=== PATIENT | female | born 1980 | race Caucasian/White ===

== ENCOUNTER 2019-05-01 19:01 | Emergency (ER) | payer OTHER, SELFPAY ==
[2019-05-01 19:03] VITALS: BP 141/96; PULSE 93; RESP 14; TEMP 36.8; O2SAT 99; BMI 29.1
--- NOTE | 2019-05-01 19:14 | ED.VIS.LOWEX ---
History of Present Illness Informant: Patient Occurred: Today Mechanism/Context: Injury Onset: Today Context: Sudden Onset Timing: Continuous Quality of Pain: Sharp Location: Right foot and ankle Current Severity: Severe Maximum Severity: Severe Worsened by: Movement and palpation Relieved by: Rest Associated Symptoms: Negative for: Parasthesia, Weakness, Loss of Funtion Narrative: 38-year-old female presents with right foot and ankle injury. She was at her health club jumping rope inverted her ankle but mostly has foot pain. She is unable to bear weight. No numbness or tingling. No weakness. She denies any other injuries. Tetanus Immunization: Unknown Prior similar symptoms: No Recent Illness/Hospitalization: No <Phil Villalobos - Last Filed: 05/01/19 20:02> <Cali Huynh - Last Filed: 05/01/19 20:21> Chief Complaint: Lower Extremity Injury Past Medical History Prior records reviewed: Yes Past Medical History: None Surgical History: no surgical history Lives: With Family Smoking Status: Never smoker <Phil Villalobos - Last Filed: 05/01/19 20:02> <Cali Huynh - Last Filed: 05/01/19 20:21> - Allergies and Home Meds Allergies/Adverse Reactions: Allergies Sulfa (Sulfonamide Antibiotics) Allergy (Verified 05/01/19 19:03) Rash Primary Care Physician: Liza Leslie MD [Primary Care Provider] - Shady Shah DPM [STAFF PHYSICIAN] - Review of Systems All systems negative except as indicated General: Denies: Chills, Fever Eyes: Denies: Visual changes - bilaterally, Diplopia ENT: Denies: Bilateral ear pain, Sore throat Cardiovascular: Denies: Chest pain, Palpitations Respiratory: Denies: Dyspnea, Cough Gastrointestinal: Denies: Abdominal pain, Nausea, Vomiting Genitourinary: Denies: Dysuria, Hematuria Musculoskeletal: Reports: Swelling, Extremity Pain. Denies: Myalgias, Arthralgias Skin: Denies: Rash, Abscess Neurological: Denies: Headache, Weakness, Parasthesia <Phil Villalobos - Last Filed: 05/01/19 20:02> Physical Exam Vital Signs/Narrative: Vital Signs Temp Pulse Resp BP Pulse Ox 05/01/19 19:03 98.2 F 93 14 141/96 H 99 Inital Vital Signs reviewed: Yes - Extremity Exam Right Foot: - - Patient has moderate swelling to her dorsum of her midfoot in her right lateral foot. Bony tenderness in this area. There is no bony tenderness at the base of the fifth metatarsal. There is no bony tenderness of the medial or lateral malleolus. Capillary refill and sensation of all 5 fingers is normal. Normal DP PT pulse. No proximal fibular tenderness. General: Well nourished, Well developed Head: Normocephalic, Atraumatic Eyes: Perrl, EOMI ENT: No Trauma, Moist Mucous Membranes Neck: Nontender, Full ROM Cardiovascular: Regular rate, Regular rhythm, No murmurs Respiratory: No distress, CTA bilaterally, Chest nontender Abdomen: Soft, Nontender, Nondistended, Normal bowel sounds, No masses Back: Nontender Skin: Normal color, No rash Neurological: Alert, Oriented x3 Psychological: Normal affect <Phil Villalobos - Last Filed: 05/01/19 20:02> Vital Signs/Narrative: Vital Signs Temp Pulse Resp BP Pulse Ox 05/01/19 19:03 98.2 F 93 14 141/96 H 99 <Cali Huynh - Last Filed: 05/01/19 20:21> Diagnostic/Tx/Re-eval - Medical Decision Making Patient was given an ice pack. She had taken Motrin just prior to arrival and initially declined analgesia. X-rays of the foot show a fourth and fifth metatarsal fracture. Dr Anderson is contacted and recommended posterior splint nonweightbearing and follow-up in his office as an outpatient later this week. Ortho-Glass posterior splint was applied. On repeat evaluation splint is in place no sign of compartment syndrome. Patient was given crutches made nonweightbearing. She was given 1 oxycodone prior to discharge and a prescription for Percocet. She will rest ice and elevate. She was agreeable with plan of care. Impressions Foot X-Ray 05/01/19 19:15 IMPRESSION: Fractures of the fourth and fifth metatarsals. Electronically Signed: Doyle Mena MD at 19:34 EST , Service support , 05/01/19 19:15 Foot min 3 Views [RAD] Stat <Pelini,Phil - Last Filed: 05/01/19 20:02> - Medical Decision Making Seen and evaluated independently and in conjunction with physician executive administrative assistant. Agree with notes above unless documented otherwise. Blood fractures are noted, clinically are closed. Her fifth metatarsal fracture appears to be a Mistry fracture but the distal segment is comminuted and nondisplaced. The fourth is oblique and mildly displaced. She was given analgesics, splinted, which I assisted with, she was neurovascularly intact distally after splinting. Discussed nonweightbearing status with crutches and close outpatient follow-up with Dr. shah, with whom we spoke. <Cali Huynh - Last Filed: 05/01/19 20:21> Procedures - Lower Extremity Splints Lower Extremity Splint: Franki Shore Splint Fabrication: Fabricated Location: Right <Phil Villalobos - Last Filed: 05/01/19 20:02> ED Disposition <GriseldaPhil - Last Filed: 05/01/19 20:02> <Cali Huynh - Last Filed: 05/01/19 20:21> - Plan for ED Patient: Disposition: Home or Assisted Living Diagnosis: Fracture of fourth metatarsal bone of right foot, Fracture of fifth metatarsal bone of right foot Instructions: FRACTURE, Foot Prescriptions: Oxycodone HCl/Acetaminophen [Percocet 5/325] 1 tab PO Q6H PRN PRN 3 Days #12 tab PRN Reason: Pain Prescription Printed Referrals: Liza Leslie MD [Primary Care Provider] - Shady Shah DPM [STAFF PHYSICIAN] -
--- NOTE | 2019-05-01 19:15 | RAD_ITS ---
STUDY: X-RAY - RIGHT FOOT CLINICAL: Female, 38 years old. Trauma. TECHNIQUE: 3 view(s) of the foot. COMPARISON: None. FINDINGS: Oblique distracted fracture through the mid fourth metatarsal shaft. No angulation. Comminuted fracture through the proximal and mid fifth metatarsal including the base and shaft. No significant displacement of fragments. No angulation. Normal talus, calcaneus, and tarsal bones. Normal visualized subtalar, talonavicular, calcaneocuboid, tarsal and tarsometatarsal articulations. Normal metatarsophalangeal joint of the great toe. Normal tibial and fibular sesamoid bones. Normal interphalangeal joint of the great toe. Normal phalanges of the great toe. Normal second through fifth metatarsophalangeal joints. Normal interphalangeal joints and phalanges of the lesser toes. The soft tissue structures are unremarkable. RAD/Foot min 3 Views IMPRESSION: Fractures of the fourth and fifth metatarsals. Electronically Signed: Doyle Mena MD at 19:34 EST , Service support ,
[2019-05-01] MEDS: oxyCODONE 5 MG Tablet PO (19:50)
== END 2019-05-01 20:25 | disposition home or self-care (01) ==
PROVIDERS: Emergency Provider Physician Assistant Medical; Family Provider Internal Medicine; PCP Internal Medicine
DX: S92.341A Displaced fracture of fourth metatarsal bone, right foot, initial encounter for closed fracture (principal); S92.354A Nondisplaced fracture of fifth metatarsal bone, right foot, initial encounter for closed fracture; X58.XXXA Exposure to other specified factors, initial encounter; Y93.56 Activity, jumping rope; Y92.29 Other specified public building as the place of occurrence of the external cause; Y99.9 Unspecified external cause status; Z88.2 Allergy status to sulfonamides
CPT/HCPCS: 29515; 73630; 99283

== ENCOUNTER 2019-09-03 14:00 | Outpatient (RCR) | payer OTHER, SELFPAY ==
--- NOTE | 2019-07-05 14:03 | HP.PTEVAL_ITS ---
Patient's Visit Information ARNIE MARTIN is a 38 year old F referred to Physical Therapy by Mónica Smith MD with a diagnosis of displaced fracture of 4th metatarsal, and nondisplaced fx of 5th metatarsal. Date of Evaluation: 07/03/19 Physical Therapist: Yehuda Zamudio DPT - Visit Plan Frequency: 2x /Week Duration: 4 Weeks Plan: Start with calf stretching, active ankle ROM, gentle strengthening of R ankle. May use IFC for pain control. Pt. advised to start with [place] calf stretching, intrinsic strengtheing (active control), and desensitization for plantar surfaces of her foot, as it is tender to light touch. Pt. consents. - Subjective Findings: Pt. is here today for her initial evaluation with diagnosis of displaced fracture of 4th metatarsal, and nondisplaced fx of 5th metatarsal of R foot. Pt. is a 38 y.o. female who injured her foot in [facility] while jumping roping at [employer]. Pt. reported a large amout of edema initially mostly throughout mid foot and lateral ankle. Pt. reports landing in inversion postioning , in a crack on the floor. Pt. has been in a boot for a while now, still in boot currently. Pt. also has a bone stimulator which she has been using. At her last appointment with physician, pt. reports that she is healing, but not fully healed. She is WBing at tolerated in boot and has been doing light exercises as tolerated. Pt. 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 Pt. reports increased pain with walking. She has been icing and doing general ROM exercises. Pt. is hopeful to reduce symptoms in order to get back to all recreational and work activities without limitations. - Pain R mid foot Pain Intensity (Out of 10): 3 Pain Intensity Range: 1, 5 - Objective POSTURE: Pt. has decrased WBing through her mid foot and forefoot. Pt. only applies wt. through her heel with standing and walking. Pt. does walk ~5-10 in bathroom and room. WBing through heel only. PALPATION: Pt. has tenderness throughout 4th and 5th, mostly through plantar region. Pt. has mild bruising at plantar surfaces of foot, mid foot ~3rd/4th metatarsal region. NEURO: normal throughout BLEs, both sensation and DTR bilaterally normal. ROM: R ankle- DF 6deg, PF 49deg, INV 6deg, EVR 6deg. L ankle- DF 18deg, PF 54deg, INV 20deg, EVR 20deg. Pt. has full ROM of bilaterally knees and hips. MMT: Pt. has general 4/5 strength throughout R ankle, but has 4-/5 with EVR seoncdary to increased pain. Pt. has 5/5 strength throughout rest of LE. GAIT: Pt. ambulates without pain with CAM boot. Without boot: pt. ambulates with all of her wt. on her heels, minimal wt. through her mid and forefoot. Pt. reports increased pain with any mid foot pressure. - Goals Goal 1:: LTG: Pt. to be I with HEP. Goal Time Frame: 4-6 Weeks Goal 2:: STG: PT. to have full R ankle ROM without increase in symptoms. Goal Time Frame: 2-4 Weeks Goal 3:: LTG: Pt. to ambulate with normal pattern without increase in symptoms for unlimited distances. Goal Time Frame: 4-6 Weeks Goal 4:: STG: Pt. to have increased strength throughout R ankle by 1/2 grade. Goal Time Frame: 2-4 Weeks Goal 5:: LTG: Pt. to have increased R ankle strength throughout by 1 grade. Goal Time Frame: 4-6 Weeks Goal 6:: LTG: Pt. to resume all work and gym activities without limiations. Goal Time Frame: 6-8 Weeks - Rehabilitation Potential Physical Therapy Diagnosis: Pt. has signs and symptoms consistent with displaced fracture of 4th metatarsal, and nondisplaced fx of 5th metatarsal of R foot. Pt. has difficulty with ambulation, increased pain with palaption, decreased strength, hypomobility. Pt. would benefit from PT to address above limitations progresing back to work and recreational activites with out limitations. Rehabilitation Potential: Excellent - Anticipated Interventions Thank you for the opportunity to evaluate your patient. For Medicare and Medicare HMO plans, please review the plan of care and approve it. It will need to be FAXED BACK to us at [phone] for Medicare purposes. For Medicare only, by signing this I certify the plan of care. Please let me know if there are questions or concerns regarding this plan of care. Physician Signature: Date:
--- NOTE | 2020-01-07 13:35 | HP.PT.NRP ---
ARNIE MARTIN was seen in my office for initial evaluation on 07/03/19. The following Plan of Care was established for this patient: Initial Frequency: 2x /Week Initial Duration: 4 Weeks This patient was last seen in our office 09/03/19. Pertinent comments regarding their Physical therapy will appear below: Pt. was see for her 4th/5th metatarsal stress fractures. pt. was seen in PT and was progressing wtih strengthening and tolerance to exercises. Pt. is abck to gym exercises at our last meeting as well as returned to work. Pt. has not been seen in several months and will be DC from PT at this point in time. At this point I will be discontinuing this patient from physical therapy. I would be happy to see this patient again in the future if found appropriate by the physician. Thank you! RAMSEY CrystalT
== END 2019-09-03 19:00 | disposition home or self-care (01) ==
LOC: PT 14:00
PROVIDERS: Family Provider Internal Medicine; PCP Internal Medicine; Referring Provider Orthopaedic Surgery; Visit Provider Orthopaedic Surgery
DX: S92.341D Displaced fracture of fourth metatarsal bone, right foot, subsequent encounter for fracture with routine healing (principal); S92.354D Nondisplaced fracture of fifth metatarsal bone, right foot, subsequent encounter for fracture with routine healing
CPT/HCPCS: 97110; 97161

== ENCOUNTER 2021-09-05 14:29 | Emergency (ER) | payer OTHER, SELFPAY ==
[2021-09-05 14:30] VITALS: BP 132/90; PULSE 77; RESP 18; TEMP 35.6; O2SAT 98; BMI 32.4
--- NOTE | 2021-09-05 14:56 | CT_ITS ---
STUDY: CT ABDOMEN AND PELVIS WITH CONTRAST REASON FOR EXAM: Female, 40 years old. abdominal pain -- IV PO Contrast- RLQ PAIN RADIATION DOSAGE (If Supplied By Facility): CTDIvol = ( 16.54 ) mGy, DLP = ( 1035.24 ) mGycm TECHNIQUE: Transaxial images were obtained from the dome of the diaphragm to the symphysis pubis without oral contrast. Oral and amp; IV Gastrografin and amp; 100mL Isovue-370 was administered. Sagittal and coronal images were reconstructed. Individualized dose optimization techniques were used for this CT. COMPARISON: None. FINDINGS: Lung bases clear. Bilateral breast implants partially included. Unremarkable liver, spleen, pancreas, and adrenals. No definite cholelithiasis. Punctate nonobstructing stones in the bilateral kidneys. Normal appendix. Bowel loops nonobstructed. No adenopathy. No free air or free fluid. Small fat-containing omental hernia. Intact abdominal aorta and its major branches. There is a 4 cm cystic area in the right adnexa, amenable to further evaluation by ultrasound. No acute osseous abnormality. Right pars defect of L5. No spondylolisthesis. Small posterior disc bulges in the lumbar spine at multiple levels. CT/Abdomen/Pelvis WITH Contrast IMPRESSION: Normal appendix. 4 cm cystic area in the right adnexa, amenable to further evaluation by ultrasound. Punctate nonobstructing stones in the bilateral kidneys. Electronically Signed: Cristhian Olmos MD at 17:03 EDT ,
--- NOTE | 2021-09-05 14:57 | EDS_ITS ---
HPI HPI - GI History of Present Illness Chief Complaint: Abd Pain Detail of Chief Complaint: Abdominal pain that started around 3 AM Informant: patient Narrative Narrative: Patient presents to the emergency department with abdominal pain us around 3 AM. She woke up to let the dog out and noticed discomfort. She took some Tylenol went to bed. Patient work-up with continued pain to the right lower quadrant. The pain is continuous but waxes and wanes in intensity. She denies any pain in her back. She has had some mild nausea but no fever. She had decreased appetite today. She denies dysuria. She denies blood in her stool or black tarry stool. She is never had pain like this before. She has had no prior abdominal surgeries. Last menstrual period was on August 29. Prior similar symptoms: No PFSH PFSH Medical History no medical history Home Medications isotretinoin [Accutane] 40 mg PO BID 09/05/21 [History Last Taken Unknown] multivitamin 1 tab PO DAILY 09/05/21 [History Last Taken Unknown] Allergy/AdvReac Type Severity Reaction Status Date / Time Sulfa (Sulfonamide Allergy Rash Verified 09/05/21 14:31 Antibiotics) Surgical History (Updated 09/05/21 @ 14:54 by Shahla Ellis) H/O breast augmentation Social History Smoking Status: Never smoker [facility] ED Constitutional Constitutional ED: Reports systems reviewed and no addt'l complaints, except as documented; Denies body ache(s), change in weight or chills Eyes Eyes: Denies acute decrease in peripheral vision, change in vision, double vision or loss of vision ENT ENT ED: Reports none; Denies ear pain, lip swelling, loss taste/smell, neck pain, otalgia or sore throat Cardiovascular Cardiovascular: Reports none; Denies abdominal pain, chest pain with activity, leg edema, lightheadedness, palpitations, rapid heart rate or syncope Respiratory/Chest Respiratory/Chest: Reports none; Denies change in mental status, dry cough, dyspnea, hemoptysis, shortness of breath at rest or shortness of breath with exertion Gastrointestinal Gastrointestinal: Reports none, abdominal pain and nausea; Denies change in stool character, diarrhea, hematemesis, hematochezia, melena, rectal bleeding or vomiting Genitourinary Genitourinary ED: Reports none; Denies abdominal discomfort, anuria, dysuria, genital pain or polyuria Musculoskeletal Musculoskeletal: Reports none; Denies arthralgias, back pain, difficulty walking, extremity pain, muscle weakness or myalgias Integumentary Reports none; Denies abscess or rash Neurologic Neurologic: Reports none; Denies abnormal gait, confusion, focal weakness, frequent falls, headache(s), loss of vision, numbness, paresthesias, radicular pain, vertigo or weakness Psychiatric Psychiatric: Reports systems reviewed and no addt'l complaints, except as documented and none; Denies behavioral changes, confusion, difficulty concentrating, hallucinations, suicidal ideation, tactile hallucinations or visual hallucinations Endocrine Endocrinology: Denies none, cold intolerance, excessive sweating, fatigue or heat intolerance Hematologic/Lymphatic Hematologic/Lymphatic: Reports none; Denies anemia, easy bleeding or easy bruising Allergic/Immunologic Allergic/Immunologic ED: Denies as per HPI, none, lip swelling, mouth swelling, throat swelling, tongue swelling or hives EXAM Physical Exam Const Vital Signs: 09/05/21 14:30 Temperature 96.1 F L Temperature Source Temporal Pulse Rate 77 Respiratory Rate 18 Blood Pressure 132/90 H Blood Pressure Mean 104 Pulse Ox 98 Oxygen Delivery Method Room Air Positive well nourished and well developed General Appearance ED: well developed and NAD HEENT Reports TM's clear and moist mucous membranes normocephalic and atraumatic; Negative for trauma or tenderness Tympanic Membrane ED: Yes TM's clear Eyes PERRL and EOMs intact bilaterally General Eye ED: Negative for pale conjunctiva or scleral icterus Neck no lymphadenopathy, supple and no JVD General: Negative for tenderness Chest Wall inspection of chest normal and palpation of chest normal Chest: Negative for tenderness Resp normal respiratory effort and clear to auscultation bilaterally Effort and Inspection: Negative for respiratory distress or pain with movement Auscultation: Negative for rhonchi, wheezes or diminished lung sounds Cardio regular rate, regular rhythm, S1 normal heart sound, S2 normal heart sound and no murmurs Peripheral Pulses: pulses 2+ throughout GI normal to inspection, nondistended, normoactive bowel sounds, soft to palpation, non-distended and no masses GI Narrative: Patient with tenderness palpation over right lower quadrant with some mild guarding. Patient has positive Rovsing sign. Negative heel strike. Negative obturator sign. No rebound, rigidity, or peritoneal signs. Palpation: tender Back/Spine no CVA tenderness and no thoracic nor lumbar tenderness Extremity normal to inspection General Extremety ED: Negative for edema General Extremity: Negative for edema Neuro oriented x3, CN's II-XII intact bilaterally, no sensory deficits noted and gait normal Sensorium / Orientation: awake, alert, oriented to person, oriented to place and oriented to time Motor Exam: strength 5/5 throughout and strength abnormal Psych mental status grossly normal Skin no rashes or lesions noted and no wounds MDM MDM MDM Narrative Medical decision making narrative: IV line established on arrival. Patient did not anything for pain. Lab work was unremarkable. CT scan of the abdomen pelvis with IV and p.o. contrast showed a normal appendix and did show a 4 cm adnexal cyst. At this point I suspect this is the cause of her pain. I do not think she clinically has a torsion. There is not ultrasound immediately available in the ER and I do not think it is indicated to call them in at this time emergently. Patient also tells me that she is done having kids and is not concerned about potentially losing ovary. Patient does not anything for pain for home. I did advise her to follow-up with [facility]. Lab Data Attestation: I reviewed the patient's lab results. Labs: Laboratory Results - last 24 hr 09/05/21 09/05/21 09/05/21 15:05 15:05 15:05 WBC 6.8 RBC 4.45 Hgb 13.7 Hct 40.3 MCV 90.6 MCH 30.8 MCHC 34.0 RDW Std Deviation 39.9 RDW Coeff of Shara 12.1 Plt Count 237 MPV 9.7 Immature Gran % (Auto) 0.600 Neut % (Auto) 65.0 Lymph % (Auto) 26.2 [place] % (Auto) 6.6 Eos % (Auto) 1.2 Baso % (Auto) 0.4 Absolute Neuts (auto) 4.4 Absolute Lymphs (auto) 1.79 Nucleated RBC % 0 Sodium 138 Potassium 3.7 Chloride 104 Carbon Dioxide 29.0 Anion Gap 5 BUN 16 Creatinine 1.03 H Estim Creat Clear Calc 66.64 Est GFR (MDRD) Af Amer 77 Est GFR (MDRD) Non-Af 64 BUN/Creatinine Ratio 15.5 Glucose 94 Calcium 9.8 Total Bilirubin 0.60 AST 24 ALT 41 Alkaline Phosphatase 70 Total Protein 8.1 Albumin 4.1 Globulin 4.0 Albumin/Globulin Ratio 1.0 Serum , Qual NEGATIVE Urine Color Urine Clarity Urine pH Ur Specific [place] Urine Protein Urine Glucose (UA) Urine Ketones Urine Occult Blood Urine Nitrite Urine Bilirubin Urine Urobilinogen Ur Leukocyte Esterase Urine RBC Urine WBC Ur Squamous Epith Cells Urine Bacteria Urine Mucus 09/05/21 15:05 WBC RBC Hgb Hct MCV MCH MCHC RDW Std Deviation RDW Coeff of Shara Plt Count MPV Immature Gran % (Auto) Neut % (Auto) Lymph % (Auto) [place] % (Auto) Eos % (Auto) Baso % (Auto) Absolute Neuts (auto) Absolute Lymphs (auto) Nucleated RBC % Sodium Potassium Chloride Carbon Dioxide Anion Gap BUN Creatinine Estim Creat Clear Calc Est GFR (MDRD) Af Amer Est GFR (MDRD) Non-Af BUN/Creatinine Ratio Glucose Calcium Total Bilirubin AST ALT Alkaline Phosphatase Total Protein Albumin Globulin Albumin/Globulin Ratio Serum , Qual Urine Color Yellow Urine Clarity Clear Urine pH 6.0 Ur Specific [place] 1.015 Urine Protein Negative Urine Glucose (UA) Normal Urine Ketones Negative Urine Occult Blood Negative Urine Nitrite Negative Urine Bilirubin Negative Urine Urobilinogen Normal Ur Leukocyte Esterase 25 H Urine RBC 0 SEEN Urine WBC 0 SEEN Ur Squamous Epith Cells 0 SEEN Urine Bacteria 0 SEEN Urine Mucus 0 SEEN Radiography Diagnostic Testing: Clinical Impression(s) from Imaging Studies Abdomen/Pelvis CT 09/05/21 14:56 IMPRESSION: Normal appendix. 4 cm cystic area in the right adnexa, amenable to further evaluation by ultrasound. Punctate nonobstructing stones in the bilateral kidneys. Electronically Signed: Cristhian Olmos MD at 17:03 EDT , Discharge Plan Triage Chief Complaint: Abd Pain ED Provider: Stacy Shelby Dx/Rx/DC Orders Clinical Impression: Ovarian cyst, Abdominal pain Instructions: Abdominal Pain, Ovarian Cysts Prescriptions: No Action multivitamin Tablet 1 tab PO DAILY RF: 0 isotretinoin [Accutane] 20 mg Capsule 40 mg PO BID RF: 0 Primary Care Provider: Liza Leslie Referrals: Liza Leslie MD [Primary Care Provider] - 3-5 Days Activity Restrictions/Additional Instructions: Follow-up with [facility] regarding suspected right ovarian cyst Disposition Disposition: Home, Self Care
[2021-09-05] MEDS: 0.9% Normal Saline 1,000 ML 125 ML IV (15:15)
[2021-09-05 15:18] LABS: Bacteria 0 SEEN /hpf (None Seen); Mucous, Urine 0 SEEN /hpf (<or=2+); Red Blood Cells-Urine 0 SEEN /hpf (0-5); Squamous Epithelial Cells - UA 0 SEEN /hpf (5-10); White Blood Cells 0 SEEN /hpf (0-5)
[2021-09-05 15:20] LABS: Absolute Lymphocyte Count 1.79 X10^3/uL (0.83-4.51); Absolute Neutrophil Count 4.4 X10^3/uL (2.0-7.7); Basophil# 0.03 X10^3/uL; Basophil% 0.4 % (0-1); Color, Urine Yellow (Yellow); Eosinophil# 0.08 X10^3/uL; Eosinophils% 1.2 % (0-5); Glucose, Dipstick Normal (Normal); Hematocrit 40.3 % (37-47); Hemoglobin 13.7 g/dL (12.0-15.0); Ketone-Dipstick Negative (Negative); Leukocyte Esterase-Dipstick 25 /ul (Negative); Lymphocyte # 1.79 X10^3/ul (0.83-4.51); Lymphocyte % 26.2 % (19-41); Mean Corpuscular Hgb 30.8 pg (27.0-32.0); Mean Corpuscular Volume 90.6 fL (81-99); Mean Platelet Vol. 9.7 fl (6.2-12.0); Monocyte# 0.45 X10^3/uL; Monocyte% 6.6 % (0-10); NRBC Flagged by Analyzer 0 % (0-5); Neutrophil # 4.43 X10^3/uL (2.7-7.7); Nitrite-Dipstick Negative (Negative); Occult Blood-Urine Negative /ul (Negative); Platelet Count 237 K/mm3 (150-450); Protein-Dipstick Negative (Negative); RBC Distribution Width CV 12.1 % (11.6-14.6); RBC Distribution Width SD 39.9 fl (35.1-43.9); Red Blood Count 4.45 M/mm3 (4.2-5.4); Specific Gravity, Urine 1.015 (1.002-1.030); Urine Bilirubin Dipstick Negative (Negative); Urine Clarity Clear (Clear); Urine Urobilinogen Normal (Normal); White Blood Count 6.8 K/mm3 (4.4-11.0)
[2021-09-05 15:36] LABS: Internal QC Validated? YES +Cl - CLEAR BKGD; Pregnancy, Serum, hCG Quali. NEGATIVE Negative
[2021-09-05 15:42] LABS: AST(SGOT) 24 U/L (15-37); Alanine Aminotransfer ALT/SGPT 41 U/L (13-56); Albumin, Serum 4.1 g/dL (3.2-5.0); Alkaline Phosphatase 70 U/L (45-117); Anion Gap 5 (5-15); BUN 16 mg/dL (7-18); BUN/Creat Ratio 15.5 RATIO (10-20); Calcium,Total 9.8 mg/dL (8.5-10.1); Chloride 104 mmol/L (98-107); Creatinine, Serum 1.03 mg/dL (0.55-1.02); EST Glomerular Filtration Rate 64 mL/min (>60); Est Glom Filt Rate - Afr Amer 77 mL/min (>60); Estimated Creatinine Clearance 66.64 ml/min; Glucose 94 mg/dL (74-106); Potassium 3.7 mmol/L (3.5-5.1); Protein, Total 8.1 g/dL (6.4-8.2); Sodium Level 138 mmol/L (136-145)
[2021-09-05 17:25] VITALS: BP 125/74; PULSE 74; RESP 16; O2SAT 99
== END 2021-09-05 17:26 | disposition home or self-care (01) ==
PROVIDERS: Emergency Provider Emergency Medicine; PCP Internal Medicine; Visit Provider Emergency Medicine
DX: N83.201 Unspecified ovarian cyst, right side (principal); R11.0 Nausea; Z79.899 Other long term (current) drug therapy
CPT/HCPCS: 74177; 80053; 81001; 84703; 85025; 96360; 96361; 99283; J7030; Q9967; A4216

== ENCOUNTER 2021-11-09 11:23 | Emergency (ER) | payer OTHER, SELFPAY ==
[2021-11-09 11:24] VITALS: BP 119/82; PULSE 104; RESP 18; TEMP 36.6; O2SAT 99; BMI 29.1
[2021-11-09 11:34] VITALS: BP 119/82; PULSE 104; RESP 18; TEMP 36.6; O2SAT 99
--- NOTE | 2021-11-09 11:51 | EDS_ITS ---
HPI History of Present Illness Chief Complaint: Nausea/Vomiting Informant: patient Onset/Context/Timing Onset: Days (5 days) Context: Gradual Onset Current Severity: Moderate Maximum Severity: Moderate Narrative Narrative: Patient presents with nausea and vomiting for the past 5 days and diarrhea for the past 4 days. No fever or chills. No URI symptoms. She has tried Zofran at home without improvement. PFSH PFSH Medical History no medical history no medical history Home Medications multivitamin 1 tab PO DAILY 09/05/21 [History Last Taken Unknown] metoclopramide HCl [Reglan] 10 mg PO Q6H PRN #14 tab 11/09/21 [Rx Last Taken Unknown] semaglutide (weight loss) [Wegovy] 1 mg SUBCUT QWEEK 11/09/21 [History Last Taken Unknown] Allergy/AdvReac Type Severity Reaction Status Date / Time Sulfa (Sulfonamide Allergy Rash Verified 11/09/21 11:26 Antibiotics) Surgical History H/O breast augmentation Social History Smoking Status: Never smoker ROS ROS ED Constitutional Constitutional ED: Denies chills or fever(s) Eyes Eyes: Denies change in vision ENT ENT ED: Denies sore throat Cardiovascular Cardiovascular: Denies chest pain Respiratory/Chest Respiratory/Chest: Denies cough or dyspnea Gastrointestinal Gastrointestinal: Reports diarrhea, nausea and vomiting; Denies abdominal pain Genitourinary Genitourinary ED: Denies dysuria Musculoskeletal Musculoskeletal: Reports myalgias; Denies back pain Integumentary Denies rash Neurologic Neurologic: Denies headache(s) or weakness Allergic/Immunologic Allergic/Immunologic ED: Denies urticaria EXAM Physical Exam Const Vital Signs: 11/09/21 11:24 11/09/21 11:34 Temperature 98 F 98 F Temperature Source Temporal Temporal Pulse Rate 104 H 104 H Respiratory Rate 18 18 Blood Pressure 119/82 H 119/82 H Blood Pressure Mean 94 94 Pulse Ox 99 99 Oxygen Delivery Method Room Air Room Air Positive well nourished and well developed General Appearance ED: well developed HEENT Reports dry mucous membranes Mouth ED: Yes dry mucous membranes Mouth: dry mucous membranes Eyes PERRL and EOMs intact bilaterally Neck supple Chest Wall inspection of chest normal and palpation of chest normal Resp normal respiratory effort and clear to auscultation bilaterally Cardio regular rate and regular rhythm GI non-tender Auscultation: hypoactive bowel sounds Palpation: soft Extremity normal to inspection Neuro oriented x3 Sensorium / Orientation: alert Psych mental status grossly normal Skin no rashes or lesions noted MDM MDM MDM Narrative Medical decision making narrative: Lab work and urinalysis obtained. Patient given IV fluids along with Reglan and Benadryl. Lab Data Attestation: I reviewed the patient's lab results. Labs: Laboratory Results - last 24 hr 11/09/21 11/09/21 11/09/21 11:45 11:45 11:45 WBC 7.1 RBC 4.28 Hgb 13.2 Hct 38.9 MCV 90.9 MCH 30.8 MCHC 33.9 RDW Std Deviation 39.2 RDW Coeff of Shara 11.9 Plt Count 233 MPV 10.0 Immature Gran % (Auto) 0.300 Neut % (Auto) 79.1 H Lymph % (Auto) 13.1 L [place] % (Auto) 5.8 Eos % (Auto) 1.4 Baso % (Auto) 0.3 Absolute Neuts (auto) 5.6 Absolute Lymphs (auto) 0.93 Nucleated RBC % 0 Sodium 140 Potassium 3.7 Chloride 109 H Carbon Dioxide 25.0 Anion Gap 6 BUN 7 Creatinine 0.90 Estim Creat Clear Calc 76.26 Est GFR (MDRD) Af Amer 90 Est GFR (MDRD) Non-Af 74 BUN/Creatinine Ratio 7.8 L Glucose 87 Calcium 8.8 Total Bilirubin 1.00 Direct Bilirubin 0.30 AST 16 ALT 24 Alkaline Phosphatase 58 Total Protein 7.4 Albumin 4.0 Globulin 3.4 Serum , Qual NEGATIVE Urine Color Urine Clarity Urine pH Ur Specific [place] Urine Protein Urine Glucose (UA) Urine Ketones Urine Occult Blood Urine Nitrite Urine Bilirubin Urine Urobilinogen Ur Leukocyte Esterase Urine RBC Urine WBC Ur Squamous Epith Cells Urine Bacteria Urine Mucus 11/09/21 13:10 WBC RBC Hgb Hct MCV MCH MCHC RDW Std Deviation RDW Coeff of Shara Plt Count MPV Immature Gran % (Auto) Neut % (Auto) Lymph % (Auto) [place] % (Auto) Eos % (Auto) Baso % (Auto) Absolute Neuts (auto) Absolute Lymphs (auto) Nucleated RBC % Sodium Potassium Chloride Carbon Dioxide Anion Gap BUN Creatinine Estim Creat Clear Calc Est GFR (MDRD) Af Amer Est GFR (MDRD) Non-Af BUN/Creatinine Ratio Glucose Calcium Total Bilirubin Direct Bilirubin AST ALT Alkaline Phosphatase Total Protein Albumin Globulin Serum , Qual Urine Color Yellow Urine Clarity Clear Urine pH 6.0 Ur Specific [place] 1.015 Urine Protein Negative Urine Glucose (UA) Normal Urine Ketones 15 H Urine Occult Blood Negative Urine Nitrite Negative Urine Bilirubin Negative Urine Urobilinogen 1 H Ur Leukocyte Esterase Negative Urine RBC 0 SEEN Urine WBC 0 SEEN Ur Squamous Epith Cells 0-5 SEEN Urine Bacteria 0 SEEN Urine Mucus 2+ Treatment and Re-Evaluation Narrative: Lab work largely unremarkable. Normal white count. Normal renal function. Urinalysis shows 15 ketones with no sign of infection. On repeat evaluation patient does feel improved. Prescription for Reglan will be provided. Return instructions given. Discharge Plan Triage Chief Complaint: Nausea/Vomiting ED Provider: Desiree Dailey Dx/Rx/DC Orders Clinical Impression: Gastroenteritis Instructions: ED Gastroenteritis, Viral (Adult) Prescriptions: New metoclopramide HCl [Reglan] 10 mg tablet 10 mg PO Q6H PRN (Reason: nausea and vomiting) Qty: 14 RF: 0 No Action multivitamin Tablet 1 tab PO DAILY RF: 0 Wegovy 1 mg/0.5 mL Pen Injector 1 mg SUBCUT QWEEK RF: 0 Primary Care Provider: Liza Leslie Referrals: Liza Leslie MD [Primary Care Provider] - 1 Week if not improving Disposition Disposition: Home, Self Care
[2021-11-09 11:56] LABS: Absolute Lymphocyte Count 0.93 X10^3/uL (0.83-4.51); Absolute Neutrophil Count 5.6 X10^3/uL (2.0-7.7); Basophil# 0.02 X10^3/uL; Basophil% 0.3 % (0-1); Eosinophils% 1.4 % (0-5); Hematocrit 38.9 % (37-47); Hemoglobin 13.2 g/dL (12.0-15.0); Lymphocyte # 0.93 X10^3/ul (0.83-4.51); Lymphocyte % 13.1 % (19-41); Mean Corp Hgb Conc 33.9 g/dL (32-36); Mean Corpuscular Hgb 30.8 pg (27.0-32.0); Mean Corpuscular Volume 90.9 fL (81-99); Monocyte# 0.41 X10^3/uL; Monocyte% 5.8 % (0-10); NRBC Flagged by Analyzer 0 % (0-5); Neutrophil % 79.1 % (47-70); Platelet Count 233 K/mm3 (150-450); RBC Distribution Width CV 11.9 % (11.6-14.6); RBC Distribution Width SD 39.2 fl (35.1-43.9); Red Blood Count 4.28 M/mm3 (4.2-5.4); White Blood Count 7.1 K/mm3 (4.4-11.0)
[2021-11-09] MEDS: 0.9% Normal Saline 1,000 ML 1000 ML IV (11:56)
[2021-11-09] MEDS: DiphenhydrAMINE 50 MG/ML Syringe 12.5 MG IV (11:57)
[2021-11-09] MEDS: Metoclopramide 10 MG/2 ML Vial IV (11:58)
[2021-11-09 12:10] LABS: AST(SGOT) 16 U/L (15-37); Alanine Aminotransfer ALT/SGPT 24 U/L (13-56); Alkaline Phosphatase 58 U/L (45-117); Anion Gap 6 (5-15); BUN 7 mg/dL (7-18); BUN/Creat Ratio 7.8 RATIO (10-20); Calcium,Total 8.8 mg/dL (8.5-10.1); Chloride 109 mmol/L (98-107); EST Glomerular Filtration Rate 74 mL/min (>60); Est Glom Filt Rate - Afr Amer 90 mL/min (>60); Estimated Creatinine Clearance 76.26 ml/min; Globulin 3.4 g/dL (2.2-4.2); Glucose 87 mg/dL (74-106); Potassium 3.7 mmol/L (3.5-5.1); Protein, Total 7.4 g/dL (6.4-8.2); Sodium Level 140 mmol/L (136-145)
[2021-11-09 12:24] LABS: Internal QC Validated? YES +Cl - CLEAR BKGD; Pregnancy, Serum, hCG Quali. NEGATIVE Negative
[2021-11-09 13:18] LABS: Bacteria 0 SEEN /hpf (None Seen); Red Blood Cells-Urine 0 SEEN /hpf (0-5); White Blood Cells 0 SEEN /hpf (0-5)
[2021-11-09] MEDS: 0.9% Normal Saline 1,000 ML 250 ML IV (13:18)
[2021-11-09 13:20] LABS: Color, Urine Yellow (Yellow); Glucose, Dipstick Normal (Normal); Ketone-Dipstick 15 mg/dl (Negative); Leukocyte Esterase-Dipstick Negative /ul (Negative); Nitrite-Dipstick Negative (Negative); Occult Blood-Urine Negative /ul (Negative); Protein-Dipstick Negative (Negative); Specific Gravity, Urine 1.015 (1.002-1.030); Urine Bilirubin Dipstick Negative (Negative); Urine Clarity Clear (Clear); Urine Urobilinogen 1 mg/dl (Normal)
[2021-11-09 13:30] LABS: Mucous, Urine 2+ /hpf (<or=2+); Squamous Epithelial Cells - UA 0-5 SEEN /hpf (5-10)
[2021-11-09 14:02] VITALS: BP 126/85; PULSE 95; RESP 16; O2SAT 100
== END 2021-11-09 14:06 | disposition home or self-care (01) ==
PROVIDERS: Emergency Provider Emergency Medicine; PCP Internal Medicine; Visit Provider Emergency Medicine
DX: K52.9 Noninfective gastroenteritis and colitis, unspecified (principal); Z79.899 Other long term (current) drug therapy
CPT/HCPCS: 80048; 80076; 81001; 84703; 85025; 96361; 96374; 96375; 99284; J7030